=== PATIENT | female | born 1955 | race Caucasian/White ===

== ENCOUNTER → 2022-03-31 | Outpatient (CLI) | payer MEDICARE, OTHER, SELFPAY ==
--- NOTE | 2022-03-31 15:44 | NEURO ---
NCS and/or EMG Patient Report Ordering Doctor: Aria Van NP DATE OF SERVICE: 03/31/22 presents for electrodiagnostic testing of the left upper limb. She reports muscle twitching in the left arm. Electrodiagnostic findings: Left median motor nerve demonstrates prolonged distal latency with normal amplitude and reduced conduction velocity. Normal left ulnar motor response. Normal left median and left ulnar F-wave. Prolonged left median sensory latency at the wrist. Normal ulnar and radial sensory responses. On needle EMG, all muscles tested in the left upper limb showed no evidence of denervation with normal motor unit action potentials. Electrodiagnostic impression: This is an abnormal study in the left upper limb. 1. Electrodiagnostic findings demonstrate left-sided median mononeuropathy. This is consistent with a mild left carpal tunnel syndrome
== END | disposition home or self-care (01) ==
PROVIDERS: PCP Nurse Practitioner Family; Referring Provider Nurse Practitioner Family; Visit Provider Nurse Practitioner Family
DX: R25.3 Fasciculation (principal); Z79.01 Long term (current) use of anticoagulants; Z96.82 Presence of neurostimulator; R25.1 Tremor, unspecified
CPT/HCPCS: 95886; 95910